=== PATIENT | male | born 1985 | race American Indian/Alaskan Native ===

== ENCOUNTER 2017-03-18 13:06 | Emergency (ER) | payer SELFPAY ==
[2017-03-18] MEDS ORDERED: D50W (25GM) IV ONE (14:48)
== END 2017-03-18 13:07 | disposition left against medical advice (07) ==
LOC: ED 13:06
DX: Z53.21 Procedure and treatment not carried out due to patient leaving prior to being seen by health care provider (principal)

== ENCOUNTER 2017-06-05 22:43 | Emergency (ER) | payer OTHER, BC ==
[2017-06-05 22:51] VITALS: BP 138/90
[2017-06-06] MEDS ORDERED: TORADOL IM ONE (01:46)
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
== END 2017-06-06 03:15 | disposition home or self-care (01) ==
LOC: ED 22:43
DX: S13.4XXA Sprain of ligaments of cervical spine, initial encounter (principal); R51 Headache; V89.2XXA Person injured in unspecified motor-vehicle accident, traffic, initial encounter; Y93.89 Activity, other specified; Y92.89 Other specified places as the place of occurrence of the external cause; Y99.8 Other external cause status
CPT/HCPCS: 70450; 72070; 72125; 96372; 99284; J1885

== ENCOUNTER 2017-06-29 06:55 | Outpatient (CLI) | payer BC ==
--- NOTE | 2017-06-29 08:31 | Magnetic Resonance Report ---
MRI BRAIN WITH/WITHOUT CONTRAST: History: Hearing loss. Technique: Multiple T1 and T2 weighted images were obtained in multiple planes. Axial diffusion and gradient imaging was performed. Post contrast T1 images in two planes were obtained following IV gadolinium. Comparison: CT head without contrast dated 06/06/17. Findings: There is an area of encephalomalacia in the right anterior temporal lobe measuring 4.4 x 3.4 x 1.2 cm. There appears to be a mason hole in the right temporal bone. This may represent postsurgical changes or posttraumatic changes. Please correlate with the patient's history. The remaining brain parenchyma signal intensity and its fenton-white interface are normal on all sequences. No abnormal parenchymal signal. No diffusion restriction, hemorrhage, mass effect or extra-axial fluid collection. Ventricular size is normal and symmetric. The basal cisterns are clear. The brainstem and cerebellar hemispheres are within normal limits. The fourth ventricle is midline. Normal flow voids are identified in the appropriate vessels at the [place] of [place]. Thin collimation images through the internal auditory canals are within normal limits. No cerebellopontine angle mass or acoustic neuroma is identified. Middle ear contents are within normal limits. The mastoid air cells are well-aerated. There is near-complete opacification of the left maxillary sinus. There is mild mucosal thickening in the frontal sinuses and left ethmoid air cells. 2 small polyps in the right maxillary sinus measure less than 1 cm. No abnormal enhancement is identified following IV gadolinium. Impression: Encephalomalacia in the right anterior temporal lobe as outlined above. No clear explanation for hearing loss. The internal auditory canals are within normal limits. Sinuses disease as described which appears mostly chronic. Correlate for acute left maxillary sinusitis.
== END 2017-06-29 06:56 | disposition home or self-care (01) ==
LOC: MRI 06:55
PROVIDERS: ATTEND Internal Medicine
DX: H91.93 Unspecified hearing loss, bilateral (principal); G93.89 Other specified disorders of brain; J33.8 Other polyp of sinus
CPT/HCPCS: 70553; A9577